=== PATIENT | female | born 1950 | race Caucasian/White ===

== ENCOUNTER → 2020-08-10 09:12 | Outpatient (BNVA) | payer MEDICARE, SELFPAY | PROVIDERS: PCP Internal Medicine; Visit Provider Surgery | DX: C50.912 Malignant neoplasm of unspecified site of left female breast (principal) | CPT/HCPCS: 99212 ==

== ENCOUNTER → 2021-02-09 09:08 | Outpatient (BNVA) | payer MEDICARE, SELFPAY | PROVIDERS: PCP Internal Medicine; Referring Provider Internal Medicine; Visit Provider Surgery | DX: C50.912 Malignant neoplasm of unspecified site of left female breast (principal) | CPT/HCPCS: 99212 ==

== ENCOUNTER → 2022-02-08 09:23 | Outpatient (BNVA) | payer MEDICARE, SELFPAY | PROVIDERS: PCP Internal Medicine; Visit Provider Surgery | DX: C50.912 Malignant neoplasm of unspecified site of left female breast (principal); Z79.811 Long term (current) use of aromatase inhibitors; Z17.0 Estrogen receptor positive status [ER+] | CPT/HCPCS: 99212 ==

== ENCOUNTER 2023-03-07 09:24 | Outpatient (AMB) | payer MEDICARE, SELFPAY ==
--- NOTE | 2023-03-07 09:36 | A.OFFVIS_ITS ---
Intake Vital Signs 03/07/23 09:45 Weight 171 lb BP 154/70 H Blood Pressure Location Rt brachial Position Sitting Pulse 79 Intake Visit Reasons: Breast examination Intake Note: Patient here for yearly breast exam. Patient denies concerns or changes with breast. Recent mammo at [facility] October of this year. 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 Accompanied by: Self / Same As Patient Allergies Penicillins [PENICILLINS] Allergy (Intermediate, Unverified 03/07/23 09:47) RASH lisinopril Allergy (Unknown, Verified 03/07/23 09:47) lip swelling, rash Medication List - Last Reconciled 03/07/23 by All Neely MD anastrozole 1 mg PO DAILY apixaban (Eliquis) 5 mg PO BID apixaban (Eliquis) 5 mg PO BID atorvastatin 10 mg PO DAILY furosemide 20 mg PO DAILY hydralazine 25 mg PO ONCE metoprolol succinate ER 50 mg PO DAILY wm-ua-jevzprw-biotin-vit D3-FA 200-450-400 mg-mcg-unit (Biotin Plus-Calcium and Vit D3) tabs PO valsartan-hydrochlorothiazide 320-25 mg 1 tab PO DAILY HPI HPI Comments History of Present Illness Details 72 year old female patient of Dr. Soto who returns for a 1 year follow up for left breast cancer diagnosed 11/2015 (7 years). She initially was noted to have a focus of increased parenchymal density on the left breast at the 5:30 o'clock position and confirmed on a subsequent ultrasound. The lesion measured 3 x 4 x 4 mm and was felt to be moderately suspicious for malignancy (Bi-RADS 4B). She underwent an ultrasound guided core biopsy on 11/29/2015 which revealed an invasive ductal carcinoma, ER+/AZ+. She subsequently underwent a needle localized lumpectomy and sentinel node biopsy on 12/19/2015, which revealed a 0.8 cm invasive ductal ca with 1/5 sentinel nodes positive for metastatic breast ca (pT1b pN1a). She completed RT March 29, 2016 at [facility] and tolerated this well and was started on Anastrozole ([facility]), which she is tolerating well, with only occasional hot flashes.? She is now on her 6th year of Anastrozole and will continue on the med as long as she tolerates the symptoms. Her last bone density scan was good.? Mammogram ([facility]) of 11/02/2022 revealed no mammographic evidence of malignancy (BI-RADS 2).? She denies any new breast symptoms. Since her last examination, she was found to have a saddle pulmonary embolus and is now on Eliquis. The embolus was from a unprovoked DVT. She also underwent a left total knee [place] by [place] Su ([facility] [place] She is awaiting a right knee replacement as well. [facility] Medical History Hypercholesterolemia Invasive ductal carcinoma of left breast Surgical History History of left breast biopsy (11/29/15) History of right breast biopsy (2014) History of total left knee replacement (TKR) (10/2022) Family History Maternal Aunt Breast cancer Social History Alcohol intake: current Alcohol intake frequency: holidays/special occasions only Patient Tobacco Use Status: Never used Tobacco Review of Systems Const All systems reviewed & are unremarkable except as noted in HPI and below Skin/Breast Denies breast swelling, Denies breast skin changes, Denies breast pain, Denies breast mass and Denies skin ulcer Physical Exam Vital Signs: Last Vital Signs Pulse 79 03/07/23 09:45 BP 154/70 H 03/07/23 09:45 Const General: cooperative, healthy appearing, comfortable, no acute distress, well developed, alert and awake HEENT Head: Yes normocephalic and Yes atraumatic Neck Lymphatic: no lymphadenopathy noted Chest Other: Left breast with a well-healed incision in lower outer quadrant. No palpable masses, no skin changes, no nipple discharge, no enlarged lymph nodes in either breast. Right breast: No skin change, nipple discharge, nipple retraction, tenderness, palpable mass or enlarged lymph nodes. Resp Effort & Inspection: normal respiratory effort, no cough and no respiratory distress Skin Other: Warm, dry, no rash Extrem Other: Full range of motion, no edema Assessment & Plan Assessment & Plan (1) Invasive ductal carcinoma of left breast: Code(s): C50.912 - Malignant neoplasm of unspecified site of left female breast Plan 72-year-old female patient returning for follow-up yearly breast examination after diagnosis of invasive ductal carcinoma of the left breast, s/p lumpectomy and sentinel node biopsy on 12/19/2015. Pathology revealed invasive ductal carcinoma 0.8 cm with 1 of 5 sentinel nodes positive for malignant disease. She continues on anastrozole and tolerating this well. She underwent radiation therapy at [facility]. Examination today reveals no new suspicious findings in either breast. Her last mammogram of 11/02/2022 revealed stable postoperative changes and no new suspicious findings (BI-RADS 2). She should continue monthly self examinations and return in 1 year for yearly breast exam. Follow-up mammogram will be due in October 2023. Coding Level of Care Code Est Pt Level 3 (43459) Diagnoses Invasive ductal carcinoma of left breast C50.912
[2023-03-07 09:45] VITALS: BP 154/70; PULSE 79
== END 2023-03-07 10:05 | disposition home or self-care (01) ==
PROVIDERS: PCP Internal Medicine; Visit Provider Surgery
DX: Z85.3 Personal history of malignant neoplasm of breast (principal)
CPT/HCPCS: 99213

== ENCOUNTER → 2023-03-07 09:24 | Outpatient (BNVA) | payer MEDICARE, SELFPAY | PROVIDERS: PCP Internal Medicine; Visit Provider Surgery | DX: C50.912 Malignant neoplasm of unspecified site of left female breast (principal) | CPT/HCPCS: 99212 ==

== ENCOUNTER 2024-02-28 09:38 | Outpatient (AMB) | payer MEDICARE, SELFPAY ==
--- NOTE | 2024-02-28 09:48 | MHC.OFFVIS ---
Vital Signs 02/28/24 09:52 Weight 175 lb BP 147/67 H Blood Pressure Location Rt brachial Position Sitting Pulse 76 Intake Visit Reasons: Breast exam, 1 year follow up Intake Note: This patient presents for Breast exam, 1 year follow up. Patient c/o; reports no breast complaints at this time. Ultrasonic Hand Solderer Required: No Aircrewman: Aircrewman Present ([place]) Accompanied by: Self / Same As Patient Allergies Penicillins [PENICILLINS] Allergy (Intermediate, Unverified 02/28/24 09:52) RASH lisinopril Allergy (Unknown, Verified 02/28/24 09:52) lip swelling, rash Medication List - Last Reconciled 02/28/24 by All Neely MD anastrozole 1 mg PO DAILY apixaban (Eliquis) 5 mg PO BID apixaban (Eliquis) 5 mg PO BID atorvastatin 10 mg PO DAILY furosemide 20 mg PO DAILY hydralazine 25 mg PO ONCE metoprolol succinate ER 50 mg PO DAILY iq-rb-labwvhe-biotin-vit D3-FA 200-450-400 mg-mcg-unit (Biotin Plus-Calcium and Vit D3) tabs PO valsartan-hydrochlorothiazide 320-25 mg 1 tab PO DAILY HPI Comments Details: 72 year old female patient of Dr. Soto who returns for a 1 year follow up for left breast cancer diagnosed 11/2015 (7 years). She initially was noted to have a focus of increased parenchymal density on the left breast at the 5:30 o'clock position and confirmed on a subsequent ultrasound. The lesion measured 3 x 4 x 4 mm and was felt to be moderately suspicious for malignancy (Bi-RADS 4B). She underwent an ultrasound guided core biopsy on 11/29/2015 which revealed an invasive ductal carcinoma, ER+/MI+. She subsequently underwent a needle localized lumpectomy and sentinel node biopsy on 12/19/2015, which revealed a 0.8 cm invasive ductal ca with 1/5 sentinel nodes positive for metastatic breast ca (pT1b pN1a). She completed RT March 29, 2016 at [facility] and tolerated this well and was started on Anastrozole ([facility]), which she is tolerating well, with only occasional hot flashes.? She is now on her 6th year of Anastrozole and will continue on the med as long as she tolerates the symptoms. Her last bone density scan was good.? Mammogram ([facility]) of 11/02/2022 revealed no mammographic evidence of malignancy (BI-RADS 2). She underwent mammogram in October 2023 and was told this was normal (report not available to time of this dictation). She denies any new breast symptoms. Since her last examination, she underwent replacement of her right knee which went well. She also developed vaginal discharge and was determined to have an early uterine CA. She underwent a robotic hysterectomy with oophorectomy. This was done as a same-day surgery. She tolerated this well. No additional therapy was needed after the surgery. [facility] Medical History Hypercholesterolemia Invasive ductal carcinoma of left breast Surgical History History of total left knee replacement (TKR) (10/2022) History of left breast biopsy (11/29/15) History of right breast biopsy (2014) Family History Maternal Aunt Breast cancer Social History Alcohol intake: current Alcohol intake frequency: holidays/special occasions only Patient Tobacco Use Status: Never used Tobacco Review of Systems Const All systems reviewed & are unremarkable except as noted in HPI and below Skin/Breast Denies breast swelling, Denies breast skin changes, Denies breast pain, Denies breast mass and Denies skin ulcer Physical Exam Vital Signs: Last Vital Signs Pulse 76 02/28/24 09:52 BP 147/67 H 02/28/24 09:52 Const General: cooperative, healthy appearing, comfortable, no acute distress, well developed, alert and awake HEENT Head: Yes normocephalic and Yes atraumatic Neck Lymphatic: no lymphadenopathy noted Chest Other: Left breast with a well-healed incision in lower outer quadrant. No palpable masses, no skin changes, no nipple discharge, no enlarged lymph nodes in either breast. Right breast: No skin change, nipple discharge, nipple retraction, tenderness, palpable mass or enlarged lymph nodes. Chest/axillae images: 1. Incision lower outer quadrant left breast Resp Effort & Inspection: normal respiratory effort, no cough and no respiratory distress GI Other: Well-healed trocar incisions from recent robotic hysterectomy and oophorectomy Skin Other: Warm, dry, no rash Neuro Other: Mobility Assessment: 1. 3 meter assessment time (seconds): 5 2. Gait observations: Normal balance and gait Extrem Other: Full range of motion, no edema Assessment & Plan Assessment & Plan (1) Invasive ductal carcinoma of left breast: Code(s): C50.912 - Malignant neoplasm of unspecified site of left female breast Category: Medical Plan 73-year-old female patient returning for follow-up yearly breast examination after diagnosis of invasive ductal carcinoma of the left breast, s/p lumpectomy and sentinel node biopsy on 12/19/2015. Pathology revealed invasive ductal carcinoma 0.8 cm with 1 of 5 sentinel nodes positive for malignant disease. She continues on anastrozole and tolerating this well. She underwent radiation therapy at [facility]. Examination today reveals no new suspicious findings in either breast. She will return in 1 year for follow-up breast examination. She will continue her annual breast screening mammograms. Coding Level of Care Code Est Pt Level 3 (77691) Diagnoses Invasive ductal carcinoma of left breast C50.912
[2024-02-28 09:52] VITALS: BP 147/67; PULSE 76
== END 2024-02-28 10:08 | disposition home or self-care (01) ==
PROVIDERS: PCP Internal Medicine; Visit Provider Surgery
DX: C50.912 Malignant neoplasm of unspecified site of left female breast (principal)
CPT/HCPCS: 99213

== ENCOUNTER → 2024-02-28 09:38 | Outpatient (BNVA) | payer MEDICARE, SELFPAY | PROVIDERS: PCP Internal Medicine; Visit Provider Surgery | DX: C50.912 Malignant neoplasm of unspecified site of left female breast (principal); Z79.811 Long term (current) use of aromatase inhibitors | CPT/HCPCS: 99212 ==

== ENCOUNTER 2024-05-20 07:13 | Day surgery (SDC) | payer MEDICARE, SELFPAY ==
[2024-05-18 15:14] VITALS: BMI 31.1
--- NOTE | 2024-05-19 12:04 | HO.ANESPROP2 ---
Documented by User: Flavia Rees NP 05/19/24 12:05 HPI - Anesthesia Eval Consult details Narrative: 73yo F for Colonoscopy Eliquis for hx PE 2021 PMFSH Active Problems Active Problems: All Active Problems Invasive ductal carcinoma of left breast (Acute) Past Medical History Medical History Arthritis Gastric reflux Pulmonary embolism (~2021) Hx of radiation therapy PONV (postoperative nausea and vomiting) Hypercholesterolemia Invasive ductal carcinoma of left breast Family History Family History Maternal Aunt Breast cancer Surgical History Surgical History Hx of hysterectomy, total (~11/2023) Hx of cataract extraction Hx of colonoscopy History of total right knee replacement (TKR) History of total left knee replacement (TKR) (10/2022) History of left breast biopsy (11/29/15) History of right breast biopsy (2014) Social History Social History (Updated 05/18/24 @ 15:16 by Anahi Yoo RN) Household Members: Spouse Housing: House Are you a primary neonatal critical care nurse to a significant other at home: No Do you presently have visiting nurse or other home services: No Alcohol intake: current Alcohol intake frequency: holidays/special occasions only Patient Tobacco Use Status: Never used Tobacco Use of substances other than those prescribed or required for medical reasons: No Have you been hit, kicked, punched, or otherwise hurt by someone within the past year? If so, by whom?: No Are you DNR?: No Advance Directives: No (will bring DOS) Advance Directives Information Provided: Yes Advance Directives on File: No Recently lost weight without trying: No Nutrition Risks: No Nutritional Risk Poor oral hygiene: No Meds Allergies Allergy/AdvReac Type Severity Reaction Status Date / Time lisinopril Allergy Severe lip Verified 05/20/24 07:39 swelling, rash Penicillins [PENICILLINS] Allergy Intermediate RASH Verified 05/20/24 07:39 Home Medications ?Medication ?Instructions ?Recorded ?Confirmed ?Last Taken ?Type anastrozole 1 mg tablet 1 mg PO DAILY 08/10/20 05/20/24 Unknown History atorvastatin 10 mg tablet 10 mg PO DAILY 08/10/20 05/20/24 Unknown History metoprolol succinate 50 mg 75 mg PO DAILY 02/09/21 05/20/24 05/20/24 History tablet,extended release 24 hr furosemide 20 mg tablet 20 mg PO DAILY 02/08/22 05/20/24 05/16/24 History hydralazine 25 mg tablet 25 mg PO BID 02/08/22 05/20/24 Unknown History apixaban 5 mg tablet (Eliquis) 5 mg PO BID 03/07/23 05/20/24 05/16/24 History calcium carbonate 600 mg-vitamin 1 tab PO DAILY 05/18/24 05/20/24 Unknown History D3 5 mcg (200 unit) tablet valsartan 320 mg tablet 320 mg PO DAILY 05/18/24 05/20/24 Unknown History Exam Height,Weight and Vital Signs: Height 5 ft 2 in Weight 77.111 kg Assessment and Plan Assessment Anesthesia Assessment: Chart Reviewed Documented by User: Donato Lopez MD 05/20/24 08:43 PMFSH Past Medical History Medical History Arthritis Gastric reflux Pulmonary embolism (~2021) Hx of radiation therapy PONV (postoperative nausea and vomiting) Hypercholesterolemia Invasive ductal carcinoma of left breast Family History Family History Maternal Aunt Breast cancer Family history of problems with anesthesia: No Surgical History Surgical History Hx of hysterectomy, total (~11/2023) Hx of cataract extraction Hx of colonoscopy History of total right knee replacement (TKR) History of total left knee replacement (TKR) (10/2022) History of left breast biopsy (11/29/15) History of right breast biopsy (2014) History of Problems with Anesthesia: Yes (PONV) Social History Social History (Updated 05/18/24 @ 15:16 by Anahi Yoo RN) Household Members: Spouse Housing: House Are you a primary neonatal critical care nurse to a significant other at home: No Do you presently have visiting nurse or other home services: No Alcohol intake: current Alcohol intake frequency: holidays/special occasions only Patient Tobacco Use Status: Never used Tobacco Use of substances other than those prescribed or required for medical reasons: No Have you been hit, kicked, punched, or otherwise hurt by someone within the past year? If so, by whom?: No Are you DNR?: No Advance Directives: No (will bring DOS) Advance Directives Information Provided: Yes Advance Directives on File: No Recently lost weight without trying: No Nutrition Risks: No Nutritional Risk Poor oral hygiene: No Meds Allergies Allergy/AdvReac Type Severity Reaction Status Date / Time lisinopril Allergy Severe lip Verified 05/20/24 07:39 swelling, rash Penicillins [PENICILLINS] Allergy Intermediate RASH Verified 05/20/24 07:39 Home Medications ?Medication ?Instructions ?Recorded ?Confirmed ?Last Taken ?Type anastrozole 1 mg tablet 1 mg PO DAILY 08/10/20 05/20/24 Unknown History atorvastatin 10 mg tablet 10 mg PO DAILY 08/10/20 05/20/24 Unknown History metoprolol succinate 50 mg 75 mg PO DAILY 02/09/21 05/20/24 05/20/24 History tablet,extended release 24 hr furosemide 20 mg tablet 20 mg PO DAILY 02/08/22 05/20/24 05/16/24 History hydralazine 25 mg tablet 25 mg PO BID 02/08/22 05/20/24 Unknown History apixaban 5 mg tablet (Eliquis) 5 mg PO BID 03/07/23 05/20/24 05/16/24 History calcium carbonate 600 mg-vitamin 1 tab PO DAILY 05/18/24 05/20/24 Unknown History D3 5 mcg (200 unit) tablet valsartan 320 mg tablet 320 mg PO DAILY 05/18/24 05/20/24 Unknown History Exam Airway Mallampati Class: II TM Dist: <=3cm Neck ROM: Full Loose/Missing/Broken Teeth: Yes and Lower Heart: ok Lungs: ok Assessment and Plan Assessment Anesthesia Assessment: Anesthesia Plan Discussed Final Anesthetic Review Family History of Problems with Anesthesia: No History of Problems with Anesthesia: Yes (PONV) NPO: Yes ASA Class: III Final Preanesthetic Review: No Changes in Pt Med Stat, Meds/Allgs Chart Reviewed, Consent Obtained/Reviewed and Anes Risks/Benef Reviewed Patient Risk: Intermediate Procedure Risk: Low Anesthetic Plan Anesthetic Plan: MAC: and Agree w/ Assess. and Plan Disposition: Standard PACU
--- OUTSIDE RECORDS SUMMARY | 2024-05-20 07:16 | XMS_ITS ---
Author Organization [facility] Address [address] [place] [address] Care Team Providers Care Gizzard Puller Name Role Phone All Soto MD Primary Care Provider Unavailab Dallas Gusman Unavailable [phone] REASON FOR VISIT screening,hx polyps Encounters Encounter Location Date Provider Diagnosis [facility] [address] [place] [phone] 05/20/2024 Dallas Espinoza PLAN OF TREATMENT Next Appt Details Provider Name:Dallas Espinoza , 05/20/2024 08:30:00 AM, [address] [facility] [address] [facility] , [place], [place], [phone],
--- OUTSIDE RECORDS SUMMARY | 2024-05-20 07:17 | XMS_ITS ---
Author Organization [facility] Address [address] [place] [id number] Care Team Providers Care Tape Sewer Name Role Phone All Soto MD Primary Care Provider Unavailab Dallas Gusman Unavailable [phone] ALLERGIES Allergen (clinical drug ingredient) Drug/Non Drug Allergy documented on EMR Reaction Allergy Type Onset Date Status Penicillin Unknown Drug Allergy Active lisinopril Lisinopril Unknown Drug Allergy Activ e REASON FOR VISIT Patient presents today for a screening colonoscopy MEDICATIONS Medication SIG (Take, Route, Frequency, Duration) Notes Start Date End Date Status Anastrozole 1 MG Oral for 90 A ctive Eliquis 5 MG Oral for 30 Activ e Furosemide 20 MG Oral for 90 A ctive Atorvastatin Calcium 10 MG TAKE 1 TABLET BY MOUTH EVERY DAY Oral for 90 E782,Unavailabl e Active Metoprolol Succinate ER 50 MG TAKE 1 AND ONE-HALF TABLET BY MOUTH EVERY DAY Oral Once a day Active hydrALAZINE HCl 25 MG TAKE 1 TABLET BY MOUTH TWICE DAILY WITH FOOD Oral for 90 Active Valsartan 320 MG TAKE 1 TABLET BY MOUTH DAILY Oral for 90 I10,Unavailable Active SOCIAL HISTORY Tobacco Use: Social History Observation Description Date Details (start date - stop date) Never Smoker NA - NA Sex Assigned At : Social History Observation Description Sex Assigned At Unknown Tobacco Use/Smoking Question Answer Notes Patient is a nonsmoker Alcohol Screen Question Answer Notes Did you have a drink contain ing alcohol in the past year? Yes Points 1 Interpretation Negative How often did you have 6 or more drinks on one occasion in the past year? Never (0 point) How many drinks did you have on a typical day when you were drinking in the past year? 1 or 2 drinks (0 point) How often did you have a dri nk containing alcohol in the past year? 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 (Z92.29) Active confirmed History of drug therapy (974206765) VITAL SIGNS BMI 31.64 kg/m2 01/30/2024 Blood pressure systolic 00 mm Hg 01/30/20 24 Blood pressure diastolic 00 mm Hg 024 Height 62 in 01/30/2024 Weight 173 lbs 01/30/2024 Encounters Encounter Location Date Provider Diagnosis [facility] [address] [place] [address] 01/30/2024 Dallas Espinoza History of adenomato us polyp of colon Z86.010 ; 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 Soto about that to make sure you don't need the Lovenox injections. 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 Soto about that to make sure you don't need the Lovenox injections. Do not take the Furosemide the day before nor on the day of the colonoscopy Future Test Test Name Order Date COLONOSCOPY 01/30/2024 Next Appt Details Follow Up: prn, Reason: Provider Name:Dallas Espinoza , 05/20/2024 08:30:00 AM, [address] [place] [address], [phone], Progress Notes * Examination Category Sub-Category Detail Notes General Examination GENERAL APPEARANCE: pleasant , well nourished, well developed, in no acute distress EYES: sclera non-icteric NECK/THYROID: no cervical lymphade nopathy, neck supple HEART: S1, S2 normal LUNGS: clear to auscultatio n bilaterally ABDOMEN: normal bowel sounds, no guarding or rigidity, no hepatosplenomegaly, no masses palpable, soft, nontender, nondistended. NEUROLOGIC: alert and oriented SKIN: nonjaundiced, no spi mary angiomata. EXTREMITIES: no edema ORAL CAVITY: mucosa moist
--- OUTSIDE RECORDS SUMMARY | 2024-05-20 07:17 | XMS_ITS | Patient Health Record ---
Author Organization [facility] Address [address] [place] [address] Care Team Providers Care Sales Consultant Residential Manager Name Role Phone All Soto MD Primary Care Provider Unavailab Dallas Gusman Unavailable [phone] ALLERGIES Allergen (clinical drug ingredient) Drug/Non Drug Allergy documented on EMR Reaction Allergy Type Onset Date Status Penicillin Unknown Drug Allergy Active lisinopril Lisinopril Unknown Drug Allergy Activ e REASON FOR REFERRAL No Information MEDICATIONS Medication SIG (Take, Route, Frequency, Duration) Notes Start Date End Date Status hydrALAZINE HCl 25 MG TAKE 1 TABLET BY MOUTH TWICE DAILY WITH FOOD Oral for 90 Active Valsartan 320 MG TAKE 1 TABLET BY MOUTH DAILY Oral for 90 I10,Unavailable Active Anastrozole 1 MG Oral for 90 A ctive Eliquis 5 MG Oral for 30 Activ e Furosemide 20 MG Oral for 90 A ctive Atorvastatin Calcium 10 MG TAKE 1 TABLET BY MOUTH EVERY DAY Oral for 90 E782,Unavailabl e Active Metoprolol Succinate ER 50 MG TAKE 1 AND ONE-HALF TABLET BY MOUTH EVERY DAY Oral Once a day Active SOCIAL HISTORY Sex Assigned At : Social History Observation Description Sex Assigned At Unknown PROBLEMS Problem Type ICD Code Onset Dates Problem Status W/U Status Risk SNOMED Code Notes Problem Colon cancer screening (Z12.11) Active confirmed Colon cancer screening (151518901) Problem History of adenomatous polyp of colon (Z86.010) Active confirmed History of adenomatous polyp of colon (478139901) Problem Encounter for other preprocedural examination (Z01.818) Active confirmed Pre-procedure evaluation check (587482887) Problem 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 Z92.29 ; Colon [...] day of the colonoscopy 01/30/2024 Hx of care home use of blood thinners (ICD-10 - Z92.29) 01/30/2024 Colon cancer screening (ICD-10 - Z12.11) 01/30/2024 Encounter for other preprocedural examination (ICD-10 - Z01.818) PLAN OF TREATMENT Future Test Test Name Order Date COLONOSCOPY 05/14/2013 COLONOSCOPY 01/30/2024 Next Appt Details Provider Name:Dallas Espinoza , 05/20/2024 08:30:00 AM, [address] [place] [address] , [place], [place], [phone], Insurance Providers Payer Name Payer Address Payer Phone Subscriber Number Group Number Insured Name Patient Relationship to Insured Coverage Start Date Coverage End Date MEDICARE OF [place] [address] JESSIE MOLINA [id number] JOSE DIOR Self - patient is the insured [facility] SU[employer]MENTAL PLAN [address] [place] [address] [id number] JOSE DIOR Self - patient is the insured MEDICAL (GENERAL) HISTORY Medical History History ICD Code Negative colonoscopy in 05/2003 except i nternal hemorrhoids Denies PR,DM,CVA,Lung disease,renal dise ase HTN Hyperlipidemia Pulmonary embolism 2021 Neg. colonoscopy in 08/2013 except for hy perplastic polyps Breast cancer-left side-2015--as below-- lumpectomy and XRT Surgical History Surgery Date(Month/Year) Breast cancer left / lumpect gabriella with + nodes - Dr. Neely, Dr. Gonzalez 2015 Cataracts -bilateral 2020 Uterine polyp removed 2021 Bilateral total knee replacements 2022 Total hysterectomy 12/09/2023
[2024-05-20] MEDS: Lactated Ringers 1,000 ML 100 ML IVCONT (08:01)
[2024-05-20 08:05] VITALS: BP 147/67; PULSE 64; RESP 12; TEMP 36.7; O2SAT 95
[2024-05-20 09:35] VITALS: BP 102/37; PULSE 63; RESP 18; TEMP 36.9; O2SAT 97
--- NOTE | 2024-05-20 09:38 | P.BOP_ITS ---
Brief Operative Note Date of Service: 05/20/24 Pre-op diagnosis: Screening Post-op diagnosis: other (Polyps) Procedure: Colonoscopy to the cecum with bx/removal of polyps Surgeon: Dallas Espinoza MD Anesthesia: MAC Was an Inside Sales Advisor used for this Procedure?: No Estimated blood loss (mL): 2.0 Pathology: other (A. Ascending colon polyps) Condition: stable Disposition: PACU
--- NOTE | 2024-05-20 09:49 | OP_ITS ---
DATE OF SERVICE: 05/20/2024 SURGEON: Dallas Espinoza MD INDICATIONS: Patient presents for evaluation of colorectal cancer screening. Full consent has been obtained from her for this, including risks of bleeding and perforation. PREOPERATIVE DIAGNOSIS: Colorectal cancer screening. POSTOPERATIVE DIAGNOSIS: PROCEDURE PERFORMED: Colonoscopy to the cecum with biopsy and removal of polyps. ESTIMATED BLOOD LOSS: COMPLICATIONS: ANESTHESIA: Monitored anesthesia care. ASSISTANTS: SPECIMENS: POSTOPERATIVE DIAGNOSES: Colorectal cancer screening, small colon polyps, diverticulosis, and internal hemorrhoids. DESCRIPTION OF PROCEDURE: The patient was placed in the left lateral decubitus position. The digital rectal exam revealed no abnormalities. The Olympus video pediatric colonoscope was then entered into the rectum and advanced to the cecum with the assistance of abdominal wall pressure. Once in the cecum, I did identify normal-appearing cecal pouch with appendiceal orifice and a normal-appearing ileocecal valve. There was transillumination of light deep in the right lower quadrant. The entire cecum and ileocecal valve appeared normal. The scope was slowly withdrawn assessing all mucosal surfaces carefully. Preparation was excellent. In the ascending colon, were 2 flat, less than 5 mm polyps, both of which were biopsied and completely removed with the cold biopsy forceps. I did not visualize any other polyps, colitis, nor angiodysplasias. There was a mild amount of sigmoid diverticulosis. In the rectum, scope was retroflexed, visualizing internal hemorrhoids, but no other pathology. The rectal mucosa appeared normal. The scope was straightened and withdrawn from the patient. She tolerated procedure well and was returned to the recovery area in stable condition. IMPRESSION: 1. Small colon polyps. 2. Diverticulosis. 3. Internal hemorrhoids. PLAN: The results of the biopsies will be checked. Given these minimal findings and her age, I do not think she will need any further screening colonoscopies going forward. She was advised not to use any aspirin and NSAIDs for least 1 week. She was advised to resume her Eliquis in 24 hours. This has been discussed with her . MD JOHANN Jackson/KASSIE / [id number]
[2024-05-20 09:52] VITALS: BP 138/54; PULSE 67; RESP 18; TEMP 36.1; O2SAT 96
== END 2024-05-20 10:12 | disposition home or self-care (01) ==
PROVIDERS: PCP Internal Medicine; Visit Provider Internal Medicine
PROC: 0DJD8ZZ Inspection of Lower Intestinal Tract, Via Natural or Artificial Opening Endoscopic (ICD-10-PCS; CPT 45378; principal; 2024-05-20 08:30)
DX: Z12.11 Encounter for screening for malignant neoplasm of colon (principal); Z86.010 Personal history of colon polyps; D12.2 Benign neoplasm of ascending colon; K57.30 Diverticulosis of large intestine without perforation or abscess without bleeding; K64.8 Other hemorrhoids; I10 Essential (primary) hypertension; E78.5 Hyperlipidemia, unspecified; I26.99 Other pulmonary embolism without acute cor pulmonale; Z79.01 Long term (current) use of anticoagulants; C50.912 Malignant neoplasm of unspecified site of left female breast; Z79.811 Long term (current) use of aromatase inhibitors; Z79.899 Other long term (current) drug therapy; Z88.0 Allergy status to penicillin; Z88.8 Allergy status to other drugs, medicaments and biological substances
CPT/HCPCS: 45380; 88305; J2704; J3010

== ENCOUNTER 2025-03-02 09:53 | Outpatient (AMB) | payer MEDICARE, SELFPAY ==
--- NOTE | 2025-03-02 09:57 | A.OFFVIS_ITS ---
Vital Signs 03/02/25 10:05 Height 5 ft 2 in Weight 178 lb 6 oz BMI 32.6 BP 162/71 H Blood Pressure Location Lt brachial Position Sitting Pulse 71 Intake Visit Reasons: Breast exam, 1 year follow up Intake Note: Patient is seen in office for one year breast exam. Pt c/o: denies any concerns regarding the breast mm:10/05/24 Medical Affairs Specialist Required: No [facility]: [facility] Present Accompanied by: Self / Same As Patient Allergies lisinopril Allergy (Severe, Verified 03/02/25 10:06) lip swelling, rash Penicillins (PENICILLINS) Allergy (Intermediate, Verified 03/02/25 10:06) RASH HPI Comments Details: 74 year old female patient of Dr. Soto who returns for a 1 year follow up for left breast cancer diagnosed 11/2015 (9 years). She initially was noted to have a focus of increased parenchymal density on the left breast at the 5:30 o'clock position and confirmed on a subsequent ultrasound. The lesion measured 3 x 4 x 4 mm and was felt to be moderately suspicious for malignancy (Bi-RADS 4B). She underwent an ultrasound guided core biopsy on 11/29/2015 which revealed an invasive ductal carcinoma, ER+/MS+. She subsequently underwent a needle localized lumpectomy and sentinel node biopsy on 12/19/2015, which revealed a 0.8 cm invasive ductal ca with 1/5 sentinel nodes positive for metastatic breast ca (pT1b pN1a). She completed RT March 29, 2016 at [facility] and tolerated this well and was started on Anastrozole ([facility]), which she is tolerating well, with only occasional hot flashes.? She is now on her 6th year of Anastrozole and will continue on the med as long as she tolerates the symptoms. Her last bone density scan was good.? Mammogram ([facility]) of 11/09/2024 revealed no mammographic evidence of malignancy (BI-RADS 2). She developed vaginal discharge and was determined to have an early uterine CA. She underwent a robotic hysterectomy with oophorectomy. This was done as a same-day surgery. She tolerated this well. No additional therapy was needed after the surgery. She denies any new breast symptoms. [facility] Medical History Arthritis Gastric reflux Pulmonary embolism (~2021) Hx of radiation therapy PONV (postoperative nausea and vomiting) Hypercholesterolemia Invasive ductal carcinoma of left breast Surgical History Hx of hysterectomy, total (~11/2023) Hx of cataract extraction Hx of colonoscopy History of total right knee replacement (TKR) History of total left knee replacement (TKR) (10/2022) History of left breast biopsy (11/29/15) History of right breast biopsy (2014) Family History Maternal Aunt Breast cancer Social History Household Members: Spouse Housing: House Are you a primary intensive care nurse to a significant other at home: No Do you presently have visiting nurse or other home services: No 75 years or older and lives alone: No Alcohol intake: current Alcohol intake frequency: holidays/special occasions only Patient Tobacco Use Status: Never used Tobacco Use of substances other than those prescribed or required for medical reasons: No Review of Systems Const All systems reviewed & are unremarkable except as noted in HPI and below Skin/Breast Denies breast swelling, Denies breast skin changes, Denies breast pain, Denies breast mass and Denies skin ulcer Physical Exam Const General: cooperative, healthy appearing, comfortable, no acute distress, well developed, alert and awake HEENT Head: Yes normocephalic and Yes atraumatic Neck Lymphatic: no lymphadenopathy noted Chest Other: Left breast with a well-healed incision in lower outer quadrant. No palpable masses, no skin changes, no nipple discharge, no enlarged lymph nodes in either breast. Right breast: No skin change, nipple discharge, nipple retraction, tenderness, palpable mass or enlarged lymph nodes. Resp Effort & Inspection: normal respiratory effort, no cough and no respiratory distress GI Other: Well-healed trocar incisions from recent robotic hysterectomy and oophorectomy Skin Other: Warm, dry, no rash Neuro Other: Mobility Assessment: 1. 3 meter assessment time (seconds): 5 2. Gait observations: Normal balance and gait Extrem Other: Full range of motion, no edema Assessment & Plan Assessment & Plan (1) Invasive ductal carcinoma of left breast: Code(s): C50.912 - Malignant neoplasm of unspecified site of left female breast Category: Medical Plan 74-year-old female patient returning for follow-up yearly breast examination after diagnosis of invasive ductal carcinoma of the left breast, s/p lumpectomy and sentinel node biopsy on 12/19/2015. Pathology revealed invasive ductal carcinoma 0.8 cm with 1 of 5 sentinel nodes positive for malignant disease. She continues on anastrozole and tolerating this well. She underwent radiation therapy at [facility]. Examination today reveals no new suspicious findings in either breast. She will return in 1 year for follow-up breast examination. She will continue her annual breast screening mammograms. Coding Level of Care Code Est Pt Level 3 (06783) Complex EM visit Add On G2211 Diagnoses Invasive ductal carcinoma of left breast C50.912
[2025-03-02 10:05] VITALS: BP 162/71; PULSE 71; BMI 32.6
--- OUTSIDE RECORDS SUMMARY | 2025-03-02 10:33 | XMS_ITS | Clinical Summary ---
Author Organization [facility] Address [address] [place] [phone] Phone Care Team Providers Care Nursing Staffing Coordinator Name Role Phone All Soto MD Primary Care Provider [phone] Allergies Active Allergy Reactions Criticality Noted Date Comments Adhesive Tape-Silicones Rash 02/05/2025 Amoxicillin-Pot Clavulanate Rash,Swelling Low 10/31/2022 Lisinopril Rash,Swelling Low 11/12/2016 Penicillins Rash Medium 05/06/2017 Lip swelling and rash Medications apixaban (ELIQUIS) 5 mg tablet Take 1 tablet (5 mg total) by mouth every 12 (twelve) hours. 07/02/2023 Active atorvastatin (LIPITOR) 10 mg tablet Take 1 tablet (10 mg total) by mouth every evening. Active calcium carbonate/vitam in D3 (CALCIUM CARBONATE-VITAM IN D PO) Take by mouth. Active furosemide (LASIX) 20 mg tablet Take 1 tablet (20 mg total) by mouth daily. Active hydrALAZINE (APRESOLINE) 25 mg tablet Take 1.5 tablets (37.5 mg total) by mouth 2 (two) times a day. 04/26/2023 Active metoprolol succinate (TOPROL-XL) 50 mg 24 hr tablet Take 1.5 tablets (75 mg total) by mouth daily. Active valsartan (DIOVAN) 320 mg tablet Take 1 tablet (320 mg total) by mouth daily. Active anastrozole (ARIMIDEX) 1 mg Take 1 tablet (1 mg total) by mouth 1 (one) time each day Swallow whole with a drink of water. 30 tablet 11 12/18/2024 Active Active Problems Problem Noted Date Diagnosed Date Endometrial cancer ([facility]/HCC V24, CMS/HCC V28) Malignant neoplasm of upper- outer quadrant of left breast in female, estrogen receptor positive (CMS/HCC V24, CMS/HCC V28) 05/18/2024 Pulmonary embolus (CMS/HCC V24, CMS/HCC V28) DVT, lower extremity, proxim al, acute, left (CMS/HCC V24, CMS/HCC V28) 03/07/2022 Hepatomegaly 03/07/2022 Vitamin D deficiency 05/06/2018 Primary osteoarthritis of both knees 11/05/2017 Malignant neoplasm of upper- outer quadrant of left female breast ([facility] V24, CMS/HCC V28) 05/07/2017 Essential hypertension 05/07/2017 Mixed hyperlipidemia 05/07/2017 Osteopenia 05/07/2017 Encounters Date Type Department Care Team Description 02/05/2025 9:30 AM EDT Office Visit [facility] Hematology Oncology [address] [place] [phone] Rasta Holguin MD Malignant neoplasm of upper-outer quadrant of left breast in female, estrogen receptor positive ([facility] V24, CMS/[facility] V28) (Primary Dx); Osteopenia of multiple sites; Endometrial cancer (CMS/HCC V24, CMS/HCC V28); Other acute pulmonary embolism without acute cor pulmonale (CMS/HCC V24, CMS/HCC V28); DVT, lower extremity, proximal, acute, left (CMS/HCC V24, CMS/HCC V28); Menopause 01/07/2025 11:40 AM EDT Office Visit [facility] [address] [place] [phone] Diaz Flores MD Endometrial cancer ([facility] V24, [facility] V28) (Primary Dx) from Last 3 Months Surgical History Surgery Date Site/Laterality Comments BREAST LUMPECTOMY PROCEDURE:BREAST LUMPECTOMY COLONOSCOPY PROCEDURE:COLONOSCOPY CATARACT EXTRACTION W/ INTRAOCULAR LENS IMPLANT PROCEDURE:CATARACT EXTRACTION W/ INTRAOCULAR LENS IMPLANT;COMMENT:2021 and May DILATION AND CURETTAGE OF UTERUS PROCEDURE:DILATION AND CURETTAGE OF UTERUS;COMMENT:removal of uterine polyp in 2021 PULMONARY EMBOLISM SURGERY 01/2022 PROCEDURE:PULMONARY EMBOLISM SURGERY;COMMENT:Bilat PE's TOTAL KNEE ARTHROPLASTY 11/08/2022 Left PROCEDURE:TOTAL KNEE ARTHROPLASTY;COMMENT:Procedu re: REPLACEMENT TOTAL KNEE; Surgeon: Joshua Su MD; Location: [facility] Service: Orthopedics; Laterality: Left; HYSTERECTOMY PROCEDURE:HYSTERECTOMY STEREOTACTIC CORE BIOPSY Bilateral Medical History Medical History Date Comments Breast cancer ([facility] V24, [facility] V28) DX:Breast cancer ([facility]) Hypertension DX:Hypertension Hyperlipidemia DX:Hyperlipidemi a Blood clotting tendency ([facility] V24) 01/2022 DX:Blood clotting tendency ([facility]);COMMENT:On Eliquis for Hx of PE's Osteoporosis DX:Osteoporosis Pulmonary embolism ([facility] V24, [facility] V28) DX:Pulmonary embolism ([facility]);COMMENT:January 2022 Bilat PE's H/O complications due to gen eral anesthesia DX:H/O complications due to general anesthesia;COMMENT:Patient has hx of diffulty waking up from anesthesia- no recent problems PONV (postoperative nausea a nd vomiting) DX:PONV (postoperative nause a and vomiting) Family History Medical History Relation Name Comments COPD Father Hypertension Father Diabetes Mother Heart disease Mother Hypertension Mother Breast cancer Mother's Sister Relation Name Status Comments Father Mother Mother's Sister Social History Tobacco Use Types Packs/Day Years Used Date Smoking Tobacco: Never Smokeless Tobacco: Never Tobacco Cessation:Counseling Given: Not Answered Alcohol Use Standard Drinks/Week Comments Not Currently 0 (1 standard drink = 0.6 oz pur e alcohol) Comments No Sex and Gender Information Value Date Recorded Sex Assigned at Female 11/05/2024 1:11 PM EDT Legal Sex Female 4:40 PM EST Gender Identity Female 11/05/2024 1:11 PM EDT Sexual Orientation Not on file Obstetrics History Para Term AB IAB SAB Ectopic Multiple Livin g Live Births 2 Last Filed Vital Signs Vital Sign Reading Time Taken Comments Blood Pressure 153/62 02/05/2025 9:25 AM EDT Pulse 77 02/05/2025 9:25 AM EDT Temperature 37 C (98.6 F) 02/05/2025 9:25 AM EDT Respiratory Rate - - Oxygen Saturation 97% 02/05/2025 9:25 AM EDT Inhaled Oxygen Concentration - - Weight 81.2 kg (179 lb) 02/05/2025 9:25 AM EDT Height 154.9 cm (5' 1 ) 02/05/2025 9:25 AM EDT Body Mass Index 33.82 02/05/2025 9:25 AM EDT Plan of Treatment Upcoming Encounters Date Type Department Care Team (Late st Contact Info) Description 07/13/2025 10:00 AM EST Office Visit [facility] [address] [phone] Diaz Flores MD [address] [place], [place] [phone] 02/04/2026 9:30 AM EDT Office Visit [facility] Hematology Oncology [address] [place] [phone] Sarah-Rasta Gonzalez MD [address] [place] [phone] Health Maintenance Due Date Last Done Comments Cholesterol Screening (Lipid Panel) 08/02/2022 Depression Screening 08/02/2022 Falls Risk Assessment 08/02/2022 Hepatitis C Screening 08/02/2022 Social Influencers of Health Screening 08/02/2022 Medicare Annual Wellness Visit 05/18/2023 05/18/2022 RSV Immunization Adult Patients (1 - 1-dose 75+ series) 2023 Hypertension/CHF/CAD Annual BMP Blood Test 05/31/2024 05/31/2023 COVID-19 Vaccine (7 - Pfizer risk season) 2024 06/18/2024, 07/24/2023, 05/29/2022, Additional history exists Influenza Vaccine (#1) 2025 , 05/28/2023, 06/26/2022, Additional history exists DTaP,Tdap,and Td Vaccines (2 - Td or Tdap) 05/19/2028 05/19/2018 Osteoporosis Screening (Bone Density Screening) 03/23/2034 03/23/2024, 01/10/2022, 03/03/2020, Additional history exists Zoster Vaccines Completed 06/12/2019, 03/13/2019 Pneumococcal Vaccine: 50+ Years Completed 01/16/2021, 09/07/2019 Breast Cancer Screening Discontinued 11/10/19 25, 11/05/2023, 11/02/2022, Additional history exists HIB Vaccines Aged Out No longer eligi ble based on patient's age to complete this topic HPV Vaccines Aged Out No longer eligi ble based on patient's age to complete this topic Hepatitis A Vaccines Aged Out No long er eligible based on patient's age to complete this topic Hepatitis B Vaccines Aged Out No long er eligible based on patient's age to complete this topic IPV Vaccines Aged Out No longer eligi ble based on patient's age to complete this topic MMR Vaccines Aged Out No longer eligi ble based on patient's age to complete this topic Meningococcal ACWY Vaccine Aged Out N o longer eligible based on patient's age to complete this topic Meningococcal B Vaccine Aged Out No l onger eligible based on patient's age to complete this topic RSV Immunization Patients Under 20 months Aged Out No longer eligible based on patient's age to complete this topic Varicella Vaccines Aged Out No longer eligible based on patient's age to complete this topic Medical Devices Implanted Type Area Logistics Lead Device Identifier Shelf Expiration Date Model / Serial / Lot Cement Bone Surg Simplex Radiopq Stry-Howm [id number] [id number] Implanted:Qty: 1 on 11/08/2022 by Joshua Su MD Left: Knee [employer] [id number] 02/22/2025 6191-1-010 / / [id number] Cement Bone Surg Simplex Radiopq Stry-How [id number] 092 Implanted:Qty: 1 on 11/08/2022 by Joshua Su MD Left: Knee [employer] [id number] 02/22/2025 6191-1-010 / / [id number] Femoral Cmpnt Lt Sz 2 Stry-How 4107-R-[id number] 021 Implanted:Qty: 1 on 11/08/2022 by Joshua Su MD Left: Knee [employer] [id number] 09/19/2027 5515-F-201 / / [id number] Knee Insert Tib Ps X3 Sz3 11mm Stry-Howm 0676-P-[id number] 651 Implanted:Qty: 1 on 11/08/2022 by Joshua Su MD Left: Knee [employer] [id number] 02/20/2027 5532-G-311 / / [id number] Knee Tib Baseplt Prim Cmnt Sz3 Stry-Howm 8587-H-[id number] 319 Implanted:Qty: 1 on 11/08/2022 by Joshua Su MD Left: Knee [employer] [id number] 05/28/2027 5520-B-300 / / [id number] Peg Fix Femoral Distal Stry-Howm 6219-B-[id number] 704 Implanted:Qty: 1 on 11/08/2022 by Joshua Su MD Left: Knee [employer] [id number] 06/24/2027 5575-X-000 / / [id number] Knee Pat Symmetric X3 29x8mm Stry-Howm 4254-E-[id number] 334 Implanted:Qty: 1 on 11/08/2022 by Joshua Su MD Left: Knee [employer] [id number] 07/29/2027 5550-G-298 / / [id number] Insert Tib Triathlon Baseplate Stry-Howm 2990-V-[id number] 995 Implanted:Qty: 1 on 06/24/2023 by Hector Contreras MD Right: Knee [employer] [id number] 10/21/2027 5521-B-300 / / [id number] Knee Compon Fem Cmnt Sz3 R Stry-Howm 0923-E-[id number] 180 Implanted:Qty: 1 on 06/24/2023 by Hector Contreras MD Right: Knee [employer] [id number] 04/24/2028 5510-F-302 / / [id number] Knee Patella Asym X3 29x9mm Stry-Howm 8779-A-[id number] 282 Implanted:Qty: 1 on 06/24/2023 by Hector Contreras MD Right: Knee [employer] [id number] 06/24/2024 5551-G-299 / / [id number] Knee Insrt Tib Cr X3 Sz3 11mm Stry-Howm 3266-Q-[id number] 328 Implanted:Qty: 1 on 06/24/2023 by Hector Contreras MD Right: Knee [employer] [id number] 10/03/2025 5530-G-311 / / [id number] Cement Bone Surg Simplex Radiopq Stry-Howm [id number] 092 Implanted:Qty: 1 on 06/24/2023 by Hector Contreras MD Right: Knee [employer] [id number] 08/25/2025 6191-1-010 / / [id number] Cement Bone Surg Simplex Radiopq Stry-Howm [id number] 092 Implanted:Qty: 1 on 06/24/2023 by Hector Contreras MD Right: Knee [employer] [id number] 08/25/2025 6191-1-010 / / [id number] Procedures Procedure Name Priority Date/Time Associated Diagnosis Comments HISTORICAL IMAGING SCAN RESULT 02/05/2025 MG MAMMO DIGITAL SCREENING W JACOBO BILAT Routine 11/09/2024 8:38 AM EDT Encounter for screening mammogram for breast cancer [facility] DEXA AXIAL SKELETON Routine 03/23/2024 10:29 AM EDT Other specified disorders of bone density and structure, left thigh ANNUAL BMP BLOOD TEST Routine 05/31/2023 from Last 3 Months or Most Recently Relevant to Health Maintenance Results * HISTORICAL IMAGING SCAN RESULT (02/05/2025) Anatomical Region Laterality Modality Ultrasound us Provider Onbase MD CONRAD US PROCEDURES Final Resul t * MG Mammo Digital Screening w Jacobo bilat (11/09/2024 8:38 AM EDT) Anatomical Region Laterality Modality Breast Bilateral Mammography 11/09/2024 11:1 1 AM EDT Impressions 11/09/2024 11:20 AM EDT No mammographic evidence of new or recurrent malignancy. No suspicious interval change. A negative mammogram in the presence of a clinically suspicious palpable abnormality does not preclude the possibility of malignancy or alter the indications for biopsy. ASSESSMENT: BI-RADS 2: BENIGN RECOMMENDATION(S): 1: Routine screening mammogram BILATERAL in 1 year. [facility] [address], [address] -------- FINAL REPORT -------- Dictated By: Stephon Suarez Dictated Date: 11/09/2024 11:11 ET Assigned Physician: Stephon Suarez Reviewed and Electronically Signed By: Stephon Suarez Signed Date: 11/09/2024 11:20 ET Workstation ID: [id number] Transcribed By: Self Edit Transcribed Date: 11/09/2024 11:11 ET Narrative 11/09/2024 11:20 AM EDT EXAM: SCREENING MAMMOGRAPHY, BILATERAL HISTORY: SCREENING. Personal history of left breast cancer. Prior left lumpectomy. Previous report indicates left lumpectomy 2016 followed by radiation treatment. Maternal aunt with history of breast cancer. COMPARISON: 11/05/2023, 11/02/2022, 10/30/2021, 10/25/2020 TECHNIQUE: Synthesized CC and MLO projections of each breast. Tomosynthesis of each breast in the CC and MLO projections. ADDITIONAL IMAGING: None Computer-aided detection was employed with the iCAD ProFound AI 3-D. TISSUE DENSITY: There are scattered areas of fibroglandular density. (BI-RADS category B) FINDINGS: RIGHT BREAST: No suspicious mass. No suspicious calcification. No distortion. No additional suspicious right breast findings LEFT BREAST: There is a stable focal asymmetry with some distortion and surgical clips consistent with prior lumpectomy and radiation. No additional suspicious left breast findings Procedure Note Stephon Suarez MD - 11/09/2024 EXAM: SCREENING MAMMOGRAPHY, BILATERAL HISTORY: SCREENING. Personal history of left breast cancer. Prior leftlumpectomy. Previous report indicates left lumpectomy 2016 followed byradiation treatment. Maternal aunt with history of breast cancer. COMPARISON: 11/05/2023, 11/02/2022, 10/30/2021, 10/25/2020 TECHNIQUE: Synthesized CC and MLO projections of each breast.Tomosynthesis of each breast in the CC and MLO projections. ADDITIONAL IMAGING: None Computer-aided detection was employed with the iCAD Lumiy AI 3-D. TISSUE DENSITY: There are scattered areas of fibroglandular density.(BI-RADS category B) FINDINGS: RIGHT BREAST: No suspicious mass. No suspicious calcification. No distortion. Noadditional suspicious right breast findings LEFT BREAST: There is a stable focal asymmetry with some distortion and surgical clipsconsistent with prior lumpectomy and radiation. No additional suspiciousleft breast findings IMPRESSION: No mammographic evidence of new or recurrent malignancy. No suspicious interval change. A negative mammogram in the presence of a clinically suspicious palpableabnormality does not preclude the possibility of malignancy or alter theindications for biopsy. ASSESSMENT: BI-RADS 2: BENIGN RECOMMENDATION(S): 1: Routine screening mammogram BILATERAL in 1 year. [facility] location[facility] [address], [address] -------- FINAL REPORT -------- Dictated By: Stephon Suarez Dictated Date: 11/09/2024 11:11 ET Assigned Physician: Stephon Suarez Reviewed and Electronically Signed By: Stephon Suarez Signed Date: 11/09/2024 11:20 ET Workstation ID: [id number] Transcribed By: Self Edit Transcribed Date: 11/09/2024 11:11 ET us Self Referral Sppl IMG BI PROCEDURES Final Resul t * JENS DEXA AXIAL SKELETON (03/23/2024 10:29 AM EDT) Anatomical Region Laterality Modality Mammography 03/23/2024 9:51 AM EDT Narrative 03/23/2024 10:29 AM EDT [facility] Diagnostic Imaging Department [address] [place] [id number] Patient: JOSE WEBB Tucker MotaB./Age/Sex: 1950 - 73 - F Unit#: [id number] Location/Status: SPDIMAM/REG CLI Mnemonic/Ordering Site: MAMDEXAAX/SPMAM Ordering Physician: RASTA SIMS MD Jens Dexa Axial Skeleton - 03/23/24 - 1021 Report Status:Signed HISTORY: The patient is a 73-year-old postmenopausal female with clinical concern for metabolic bone disease. FINDINGS: Dual energy x-ray absorptiometry of the lumbar spine and femurs is performed. The mean bone mineral density at L1-2 is 1.383 gm/cm2 which is 119% of that of young normals and 136% of that of age matched controls. This yields a T-score of 1.8 and a Z-score of 3.1 and there is therefore no evidence of osteoporosis or osteopenia here. The mean bone mineral density of the femurs bilaterally is 0.955 gm/cm2 which is 99% of that of young normals and 120% of that of age matched controls. This yields a T-score of -0.1 and a Z-score of 1.3 and there is therefore no evidence of osteoporosis or osteopenia here. However, the T-score of the right femoral neck is -1.3 and that of the left femoral neck is -1.6 which is diagnostic of osteopenia. IMPRESSION: 1. Osteopenia. There has been a decrease of 1.4% in bone mineral density in the lumbar spine since the prior examination of 01/10/2022. There has been a decrease of 3.0% in bone mineral density in the right femur and a decrease of 0.8% in bone mineral density in the left femur. 2. FRAX analysis yields a 10-year probability of major osteoporotic fracture of 11.3% and a 10-year probability of hip fracture of 2.4%. Code 18429 Dictating Physician: MARCOS AG MD Electronically Signed by: MARCOS AG MD Dic Date/Time: 03/23/24 1026 Sign date/Time: 03/23/24 1029 Procedure Note Marcos Ag MD - 06/10/2024 [facility] Diagnostic Imaging Department [address] [place] [address] Patient: JOSE WEBB Tucker MotaB./Age/Sex: 1950 - 73 - F Unit#: [id number] Location/Status: [facility] Mnemonic/Ordering Site: [facility] Ordering Physician: RASTA SIMS MD [facility] Dexa Axial Skeleton - 03/23/24 - 1021 Report Status:Signed HISTORY: The patient is a 73-year-old postmenopausal female withclinical concern for metabolic bone disease. FINDINGS: Dual energy x-ray absorptiometry of the lumbar spine and femursis performed. The mean bone mineral density at L1-2 is 1.383 gm/cm2 which is119% of that of young normals and 136% of that of age matched controls. Thisyields a T-score of 1.8 and a Z-score of 3.1 and there is therefore no evidenceof osteoporosis or osteopenia here. The mean bone mineral density of the femurs bilaterally is 0.955 gm/up2iqsac is 99% of that of young normals and 120% of that of age matched controls.This yields a T-score of -0.1 and a Z-score of 1.3 and there is therefore noevidence of osteoporosis or osteopenia here. However, the T-score of the rightfemoral neck is -1.3 and that of the left femoral neck is -1.6 which is diagnosticof osteopenia. IMPRESSION: 1. Osteopenia. There has been a decrease of 1.4% in bone mineral densityin the lumbar spine since the prior examination of 01/10/2022. There has poonam decrease of 3.0% in bone mineral density in the right femur and a decreaseof 0.8% in bone mineral density in the left femur. 2. FRAX analysis yields a 10-year probability of major osteoporoticfracture of 11.3% and a 10-year probability of hip fracture of 2.4%. Code 10644 Dictating Physician: MARCOS AG MD Electronically Signed by: MARCOS AG MD Dic Date/Time: 03/23/24 1026 Sign date/Time: 03/23/24 1029 Subramony Subramonia-Carlos RODRIGUEZ IM BI PROCEDURES F inal Result * Annual BMP Blood Test (05/31/2023) Annual BMP Blood Test Abstracted Historical Provider HEALTH MAINTENANCE Final Result from Last 3 Months or Most Recently Relevant to Health Maintenance Insurance MEDICARE [facility] Advance Directives Documents on File Type Date Recorded Patient Spring Winder Expl [facility] Health Care Decision (hx) 11/08/2022 ADVANCE DIRECTIVE AN D LIVING WILL Care Teams Nursing Staffing Coordinator Relationship Specialty Start Date End Date All Soto MD [address] [place] [id number] PCP - General Internal Medicine 02/13/22
--- OUTSIDE RECORDS SUMMARY | 2025-03-02 10:34 | XMS_ITS | Patient Health Record ---
Author Organization [facility] Address [address] [place] [address] Care Team Providers Care Pick Up Attendant Name Role Phone All Soto MD Primary Care Provider Unavailab Dallas Gusman Unavailable [phone] Allergies Allergen (clinical drug ingredient) Drug/Non Drug Allergy documented on EMR Reaction Allergy Type Onset Date Status Penicillin Unknown Drug Allergy Active lisinopril Lisinopril Unknown Drug Allergy Activ e Results Component Value Reference Range Notes Pathology (Not yet reviewed by provider) Interpretation: Performing Lab:[facility], [address] [place] [id number] Notes/Report: Reason For Referral No Information Medications Medication SIG (Take, Route, Frequency, Duration) Notes [...] EVERY DAY Oral Once a day Active Problems Problem Type SNOMED Code ICD Code Onset Dates Problem Status W/U Status Risk Notes Problem Colon cancer screening (951376742) Colon cancer screening (Z12.11) Active confirmed Problem History of adenomatous polyp of colon (714459715) History of adenomatous polyp of colon (Z86.010) Active confirmed Problem Pre-procedure evaluation check (438780888) Encounter for other preprocedural examination (Z01.818) Active confirmed Problem Diverticular disease of colon (301610276) Diverticulosis of large intestine without perforation or abscess without bleeding (K57.30) Active confirmed Problem History of drug therapy (041482990) 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 (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) Active confirmed Encounters Encounter Location Date Provider Diagnosis [facility] Outpatient [address] [place] [phone] 05/20/2024 Dallas Espinoza Colon cancer scree maggie Z12.11 ; Colon polyps K63.5 ; Diverticulosis of large intestine without perforation or abscess without bleeding K57.30 and Other hemorrhoids K64.8 Assessments Encounter Date Diagnosis (ICD Code) Assessment Notes Treatment Notes Treatment Clinical Notes Section Notes 05/20/2024 Colon cancer screening (ICD-10 - Z12.11) 05/20/2024 Colon polyps (ICD-10 - K63.5) 05/20/2024 Diverticulosis of large intestine without perforation or abscess without bleeding (ICD-10 - K57.30) 05/20/2024 Other hemorrhoids (ICD-10 - K64.8) Plan Of Treatment Pending Test Test Name Order Date Pathology 05/20/2024 Future Test Test Name Order Date COLONOSCOPY 05/14/2013 COLONOSCOPY 01/30/2024 Insurance Providers Payer Name Payer Address Payer Phone Subscriber Number Group Number Insured Name Patient Relationship to Insured Coverage Start Date Coverage End Date MEDICARE OF [place] [address] [facility] [place] [address] [id number] JOSE DIOR Self - patient is the insured [facility] [employer] [address] [place], [place] [id number] JOSE DIOR Self - patient is the insured Medical (General) History Medical History History ICD Code Negative colonoscopy in 05/2003 except i nternal hemorrhoids Denies CA,DM,CVA,Lung disease,renal dise ase HTN Hyperlipidemia Pulmonary embolism [...]
--- OUTSIDE RECORDS SUMMARY | 2025-03-02 10:34 | XMS_ITS | Clinical Summary ---
Author Organization [facility] Address [address] [place] [id number] Care Team Providers Care Tobacco Prizer Name Role Phone All Soto MD Primary Care Provider Unavail able Allergies Active Allergy Reactions Criticality Noted Date Comments Amoxicillin-Pot Clavulanate Swelling,Rash Low 10/31/2022 Lisinopril Rash,Swelling Low 11/12/2016 Penicillins Rash Medium 05/06/2017 Lip swelling and rash Medications Medication Sig Dispensed Refills Start Date End Date Status atorvastatin (LIPITOR) tablet 10 mg Take 1 tablet (10 mg total) by mouth every evening. 0 Active CALCIUM-VITAMIN D PO Take by mouth. 0 Active metoprolol succinate (TOPROL-XL) 24 hr tablet 50 mg Take 1.5 tablets (75 mg total) by mouth daily. 0 Active valsartan (DIOVAN) tablet 320 mg Take 1 tablet (320 mg total) by mouth daily. 0 Active furosemide (LASIX) 20 MG tablet Take 1 tablet (20 mg total) by mouth daily. 0 Active hydrALAZINE (APRESOLINE) 25 MG tablet TAKE 1 TABLET BY MOUTH TWICE DAILY WITH FOOD 0 04/26/2023 Active apixaban (ELIQUIS) 5 MG TABS tablet Take 1 tablet (5 mg total) by mouth every 12 (twelve) hours. 30 tablet 0 07/02/2023 Active anastrozole (ARIMIDEX) 1 MG tablet TAKE 1 TABLET(1 MG) BY MOUTH DAILY 90 tablet 1 06/22/2024 Active Active Problems Problem Noted Date Diagnosed Date DVT, lower extremity, proximal, acute, left 02/23 Pulmonary embolus 03/07/2022 Hepatomegaly 03/07/2022 Vitamin D deficiency 05/06/2018 Malignant neoplasm of upper- outer quadrant of left breast in female, estrogen receptor positive 11/05/2017 Primary osteoarthritis of both knees 11/05/2017 Malignant neoplasm of upper- outer quadrant of left female breast 05/07/2017 Cancer Staging:Pathologic stage from 12/19/2015:Stage IIA(T1b, N1a, cM0) - Signed by Alice Mary MD on 11/03/2017 Osteopenia 05/07/2017 Essential hypertension 05/07/2017 Mixed hyperlipidemia 05/07/2017 Family History Medical History Relation Name Comments COPD Father Hypertension Father Diabetes Mother Heart disease Mother Hypertension Mother Relation Name Status Comments Father Mother Social History Tobacco Use Types Packs/Day Years Used Date Smoking Tobacco: Never Passive Smoke Exposure: Never Smokeless Tobacco: Never Tobacco Cessation:Counseling Given: Not Answered Alcohol Use Standard Drinks/Week Comments Not Currently 0 (1 standard drink = 0.6 oz pur e alcohol) occasional Sex and Gender Information Value Date Recorded Sex Assigned at Female 10/17/2022 10:55 AM EST Gender Identity Female 10/17/2022 10:55 AM EST Sexual Orientation Straight 11/08/2022 8: 55 AM EDT Job Start Date Occupation Industry Not on file Not on file Not on file Last Filed Vital Signs Vital Sign Reading Time Taken Comments Blood Pressure 165/58 02/07/2024 10:38 AM EDT Pulse 58 02/07/2024 10:38 AM EDT Temperature 36.7 C (98.1 F) 02/07/2024 10:38 AM EDT Respiratory Rate 19 06/25/2023 7:48 AM EDT Oxygen Saturation 99% 02/07/2024 10:38 AM EDT Inhaled Oxygen Concentration - - Weight 79.7 kg (175 lb 9.6 oz) 02/07/2024 10:38 AM EDT Height 158.8 cm (5' 2.5 ) 06/24/2023 8:28 AM EDT Body Mass Index 31.61 06/24/2023 8:28 AM EDT Plan of Treatment Health Maintenance Due Date Last Done Comments Hepatitis C Screening 1950 COVID-19 Vaccine (#1) 1953 Pneumococcal Vaccine (1 of 2 - PCV) 1954 Depression Screening 1960 BMI Counseling 1966 Preventative Health Evaluation 1966 Fall Risk Assessment 2013 Osteoporosis Screening (DEXA Scan) 2013 Shingrix-Zoster Vaccine (2 o f 2) 05/08/2019 03/13/2019 RSV Adult > 60+ Yrs or (1 - 1-dose 75+ series) 2023 Influenza Vaccine (#1) 2025 , 05/19/2018 DTap / Tdap / Td (2 - Td or Tdap) 05/19/2028 05/19/2018 Hepatitis B Vaccines Aged Out No long er eligible based on patient's age to complete this topic RSV Ped < 20 months Aged Out No longe r eligible based on patient's age to complete this topic Medical Devices Implanted Type Area Behavioral Specialist Device Identifier Shelf Expiration Date Model / Serial / Lot Cement Bone Surg Simplex Radiopq Stry-Howm 9578-2-355-114 092 - [id number] Implanted:Qty: 1 on 11/08/2022 by Joshua Su MD at [facility] [place] [facility] Left: Knee [employer] [id number] 02/22/2025 6191-1-010 / / [id number] Cement Bone Surg Simplex Radiopq Stry-Howm [id number] 092 - [id number] Implanted:Qty: 1 on 11/08/2022 by Joshua Su MD at [facility] [place] [facility] Left: Knee [employer] [id number] 02/22/2025 6191-1-010 / / [id number] Femoral Cmpnt Lt Sz 2 Stry-How 8648-N-[id number] 021 - [id number] Implanted:Qty: 1 on 11/08/2022 by Joshua Su MD at [facility] [place] and [facility] Left: Knee [employer] [id number] 09/19/2027 5515-F-201 / / [id number] Knee Insert Tib Ps X3 Sz3 11mm Stry-Howm 8513-M-621-537 651 - [id number] Implanted:Qty: 1 on 11/08/2022 by Joshua Su MD at [facility] [place] [facility] Left: Knee [employer] [id number] 02/20/2027 5532-G-311 / / [id number] Knee Tib Baseplt Prim Cmnt Sz3 Stry-Howm 5057-V-[id number] 319 - [id number] Implanted:Qty: 1 on 11/08/2022 by Joshua Su MD at [facility] [place] [facility] Left: Knee [employer] [id number] 05/28/2027 5520-B-300 / / [id number] Peg Fix Femoral Distal Stry-Howm 1249-A-561-547 704 - [id number] Implanted:Qty: 1 on 11/08/2022 by Joshua Su MD at [facility] [place] [facility] Left: Knee [employer] [id number] 06/24/2027 5575-X-000 / / [id number] Knee Pat Symmetric X3 29x8mm Stry-How 1489-Q-785-287 334 - [id number] Implanted:Qty: 1 on 11/08/2022 by Joshua Su MD at [facility] [place] [facility] Left: Knee [employer] [id number] 07/29/2027 5550-G-298 / / [id number] Insert Tib Triathlon Baseplate Stry-Howm 4482-F-876-546 995 - [id number] Implanted:Qty: 1 on 06/24/2023 by Hector Contreras MD at [facility] [place] [facility] Right: Knee [employer] [id number] 10/21/2027 5521-B-300 / / [id number] Knee Compon Fem Cmnt Sz3 R Stry-Howm 9350-F-175-189 180 - [id number] Implanted:Qty: 1 on 06/24/2023 by Hector Contreras MD at [facility] [place] [facility] Right: Knee [employer] [id number] 04/24/2028 5510-F-302 / / [id number] Knee Patella Asym X3 29x9mm Stry-Howm 5745-B-328-633 282 - [id number] Implanted:Qty: 1 on 06/24/2023 by eHctor Contreras MD at [facility] [place] [facility] Right: Knee [employer] [id number] 06/24/2024 5551-G-299 / / [id number] Knee Insrt Tib Cr X3 Sz3 11mm Stry-Howm 1195-M-[id number] 328 - [id number] Implanted:Qty: 1 on 06/24/2023 by Hector Contreras MD at [facility] [place] [facility] Right: Knee [employer] [id number] 10/03/2025 5530-G-311 / / [id number] Cement Bone Surg Simplex Radiopq Stry-Howm 2962-0-019-114 092 - [id number] Implanted:Qty: 1 on 06/24/2023 by Hector Contreras MD at [facility] [place] [facility] Right: Knee [employer] [id number] 08/25/2025 6191-1-010 / / [id number] Cement Bone Surg Simplex Radiopq Stry-Howm 8207-6-440-114 092 - [id number] Implanted:Qty: 1 on 06/24/2023 by Hector Contreras MD at [facility] [place] [facility] Right: Knee [employer] [id number] 08/25/2025 6191-1-010 / / [id number] Advance Directives For more information, please contact: [phone] Documents on File Type Date Recorded Patient Animal Assisted Therapist Expl anation Advance Directive and Living Will 11/08/2022 Latest Code Status on File Code Status Date Activated Date Inactivated Comments Full Code 06/24/2023 1:01 PM 06/25/2023 6:53 PM Thi s code status was ascertained in the following way: discussion with patient . Code Status History Code Status Date Activated Date Inactivated Comments Full Code 06/24/2023 7:58 AM 06/24/2023 1:01 PM Thi s code status was ascertained in the following way: discussion with patient . Full Code 11/08/2022 2:25 PM 11/09/2022 8:02 PM This code status was ascertained in the following way: per living will or healthcare instructions . Full Code 11/08/2022 8:54 AM 11/08/2022 2:25 PM This code status was ascertained in the following way: discussion with patient . Care Teams Tobacco Prizer Relationship Specialty Start Date End Date All Soto MD PCP - General Internal Medicine 11/08/22
== END 2025-03-02 10:17 | disposition home or self-care (01) ==
LOC: HO.HGS 09:54
PROVIDERS: PCP Internal Medicine; Visit Provider Surgery
DX: C50.912 Malignant neoplasm of unspecified site of left female breast (principal)
CPT/HCPCS: 99213; G2211

== ENCOUNTER → 2025-03-02 09:53 | Outpatient (BNVA) | payer MEDICARE, SELFPAY | PROVIDERS: PCP Internal Medicine; Visit Provider Surgery | DX: C50.512 Malignant neoplasm of lower-outer quadrant of left female breast (principal); Z79.899 Other long term (current) drug therapy | CPT/HCPCS: 99212 ==